=== PATIENT | female | born 1955 | race African-American/Black ===

== ENCOUNTER 2017-03-08 06:45 | Emergency (ER) | payer SELFPAY ==
[~2017-03-08] VITALS: Ht 162.6 cm; Wt 72.6 kg
[~2017-03-08 06:45] MED LIST: ACYCLOVIR400 MG ORAL; IBUPROFEN600 M1 PO; NORCO 5-325 TA1 EACH ORAL
[2017-03-08] MEDS ORDERED: ATENOLOL50 MG ORAL ×2 (07:22→10:42)
[2017-03-08] MEDS ORDERED: BENAZEPRIL HCL40 MG ORAL ×2 (07:22→10:42)
[2017-03-08 07:25] VITALS: BP 148/85
[2017-03-08 08:16] LABS: APPEARANCE,URINE CLEAR; KETONES,URINE NEGATIVE (NEGATIVE); LEUKOCYTE ESTERASE ,URINE NEGATIVE (NEGATIVE); NITRITE,URINE NEGATIVE (NEGATIVE); PH,URINE 5 (4.5-8.0); PROTEIN,URINE NEGATIVE (NEGATIVE); UROBILINOGEN,URINE NORMAL MG/DL (0.0-1.0)
[2017-03-08 08:24] LABS: BACTERIA,URINE FEW /HPF; MUCUS,URINE OCCASIONAL /LPF (NONE/OCC); SQUAMOUS EPITHELIAL CELL,UR FEW /LPF (NONE/OCC); WBC,URINE 0-2 /HPF (0 - 2)
[2017-03-08 08:45] LABS: BASOPHILS % (AUTO) 0.8 % (0.0-2.0); EOSINOPHILS % (AUTO) 2.1 % (0.0-3.0); LYMPHOCYTES % (AUTO) 24.4 % (20.0-45.0); MEAN CORPUSCULAR HEMOGLOBIN 31.1 PG (27.0-31.0); MEAN CORPUSCULAR HGB CONC 32.2 G/DL (32.0-36.0); MEAN CORPUSCULAR VOLUME 97 FL (80-99); MEAN PLATELET VOLUME 9.1 FL (6.5-10.1); MONOCYTES % (AUTO) 5.6 % (1.0-10.0); NEUTROPHILS % (AUTO) 67.2 % (45.0-75.0); PLATELET COUNT 325 K/UL (150-450); RED BLOOD COUNT 5.31 M/UL (4.20-5.40); RED CELL DISTRIBUTION WIDTH 12.5 % (11.6-14.8); WHITE BLOOD COUNT 12.4 K/UL (4.8-10.8)
[2017-03-08 08:50] LABS: ALANINE AMINOTRANSFERASE 23 U/L (3-33); ALBUMIN/GLOBULIN RATIO 1.2 (1.0-2.7); ANION GAP 14 (5-15); ASPARTATE AMINO TRANSFERASE 23 U/L (5-40); CALCIUM 12.2 mg/dL (8.6-10.2); CARBON DIOXIDE 25 mEQ/L (20-30); CHLORIDE 95 mEQ/L (98-107); CREATININE 0.9 mg/dL (0.5-0.9); GLOMERULAR FILTRATION RATE > 60 mL/min (>60); HEMOLYSIS 9; SODIUM 134 mEQ/L (135-145); TOTAL PROTEIN 8.6 g/dL (6.6-8.7)
--- NOTE | 2017-03-08 10:47 | Emergency Room Report ---
History of Present Illness General Chief Complaint: Headache Source: Patient Present Illness HPI 61-year-old F hx of HTN p/w generalized lightheadedness x 1 week. Patient states that she has been trying to get a primary care doctor appointment however her insurance ran out. Patient states that she has not been able to take her to blood pressure medications for which she has been taking for many years. Patient states now she feels lightheaded upon standing and walking. Denies any headache. Denies any chest pain shortness of breath nausea vomiting diarrhea or abdominal pain. Denies any fever or chills. Denies any altered mental status. Patient has been eating and drinking normally. Patient states she has been having a lot of anxiety as well because she's not able to get a doctor's appointment. Allergies: Coded Allergies: No Known Allergies (Unverified , 08/06/14) Patient History Past Medical History: HTN Past Surgical History: none Pertinent Family History: none Nursing Documentation-[facility] Past Medical History: No History, Except For Hx Hypertension: Yes Review of Systems All Other Systems: negative except mentioned in HPI Physical Exam Vital Signs Date Time Temp Pulse Resp B/P Pulse Ox O2 Delivery O2 Flow Rate FiO2 03/08/17 07:15 97.7 106 20 136/92 98 Room Air General Appearance: normal inspection, well appearing, no apparent distress, alert, GCS 15, non-toxic Head: normocephalic, atraumatic Eyes: bilateral eye EOMI, bilateral eye PERRL, bilateral eye normal inspection ENT: normal ENT inspection, normal pharynx, normal voice, moist mucus membranes Neck: normal inspection, full range of motion, supple, no bony tend Respiratory: normal inspection, lungs clear, normal breath sounds, no respiratory distress, no retraction, no wheezing, speaking full sentences, chest symmetrical Cardiovascular #1: normal inspection, regular rate, rhythm, no edema, normal capillary refill Gastrointestinal: normal inspection, non tender, soft, non-distended, no guarding Musculoskeletal: normal inspection, back normal, normal range of motion, non- tender Neurologic: normal inspection, alert, oriented x3, responsive, motor strength/ tone normal, sensory intact, normal gait, speech normal Medical Decision Making Diagnostic Impression: Primary Impression: Lightheadedness ER Course 61 yo F pw with 1 week of lightheadedness and shaking hasnt taken her meds in 10 days bc ran out DDX: dehydration/uti/electrolyte disturbance/BB withdrawal plan: ekg routine labs ER course: patient has remained nontoxic in ED Patient able to ambulate without any issue. Patient has been on monitor and vital signs are normal. HR stable at 80 patient received 500cc NS Disposition Patient is to be discharged home. Patient appears nontoxic and is feeling much better. He she will be given prescriptions for her medications of atenolol and denies tobacco. Patient states that she has been taking this medication for many years but she has ran out for the last 10 days. Patient is informed of strict return precautions on when to come back to the ER especially in severe lightheadedness chest pain shortness of breath inability to walk. Patient is told to followup with her primary care doctor within 5 days. Patient verbalizes understanding and agrees with plan. EKG Diagnostic Results Rate: normal Rhythm: NSR ST Segments: no acute changes ASA given to the pt in ED: No Rhythm Strip Diag. Results EP Interpretation: yes Rhythm: NSR, no PVC's, no ectopy Last Vital Signs Date Time Temp Pulse Resp B/P Pulse Ox O2 Delivery O2 Flow Rate FiO2 03/08/17 07:25 97.6 95 20 148/85 97 Room Air Disposition: HOME, SELF-CARE Condition: Improved Scripts Benazepril Hcl* (BENAZEPRIL HCL*) 40 Mg Tablet 40 MG ORAL DAILY for 14 Days, #14 TAB Prov: Daniel De Los Santos M.D. 03/08/17 Atenolol* (TENORMIN*) 50 Mg Tablet 50 MG ORAL DAILY for 14 Days, #14 TAB Prov: Daniel De Los Santos M.D. 03/08/17 Referrals: NOT CHOSEN ANGEL/,REFERRING (PCP) Daniel De Los Santos M.D. Mar 08, 2017 10:47
[2017-03-08 11:00] VITALS: BP 139/84
--- NOTE | 2017-03-10 00:53 | Cardiology Report ---
APPROVED REPORT EKG Measurement Heart [id number] Normal sinus rhythm Anterior infarct, age undetermined Abnormal ECG
== END 2017-03-08 11:01 | disposition home or self-care (01) ==
LOC: EMR 07:52
DX: R42 Dizziness and giddiness (principal); I10 Essential (primary) hypertension
CPT/HCPCS: 36415; 80053; 81001; 84443; 85025; 93005; 96360